=== PATIENT | female | born 1935 | race Caucasian/White ===

== ENCOUNTER 2021-09-21 15:04 | Inpatient (IN) | payer MEDICARE, MEDICAID ==
[~2021-09-21] VITALS: Ht 160 cm; Wt 48.5 kg
[2021-09-21] MEDS ORDERED: ACETAMINOPHEN 325MG TABLET PO ONE (15:15)
[2021-09-21 16:50] LABS: BASOPHILS % 0.5 % (0.0-2.0); HEMATOCRIT. 36.8 % (36.0-48.0); HEMOGLOBIN. 12.2 g/dL (12.0-16.0); MEAN CORPUSCULAR HEMOGLOBIN 29.8 pg (28.0-32.0); MEAN CORPUSCULAR VOLUME 89.5 fL (81.0-99.0); MONOCYTES % 5.6 % (2.0-8.0); NEUTROPHILS % 78.9 % (40.0-76.0); RED BLOOD CELL COUNT 4.11 mill/uL (4.2-5.4)
[2021-09-21 17:04] LABS: CHLORIDE 108 mEq/L (98-107)
[2021-09-21 17:57] LABS: MEAN PLATELET VOLUME 10.7 fl (7.4-10.4); PLATELET 130 x1000/uL (130-400)
[2021-09-21] MEDS ORDERED: SODIUM CHLORIDE 0.9% 1,000 ML IV ONE (21:00)
[2021-09-22] MEDS ORDERED: SENN-257 PO (08:59)
[2021-09-22] MEDS ORDERED: INSLIS SUBCUT (08:59)
[2021-09-22] MEDS ORDERED: ASPI-1160 MT (08:59)
[2021-09-22] MEDS ORDERED: ACET-2178 (08:59)
[2021-09-22] MEDS ORDERED: LOSA100T32 MT (08:59)
[2021-09-22 09:00] VITALS: BP 156/55
[2021-09-22 09:06] VITALS: BP 156/55
[2021-09-22 11:53] VITALS: BP 147/52
[2021-09-22] MEDS ORDERED: DEXTROSE 50% WATER 50ML SYRINGE IV PRN ×2 (12:00)
[2021-09-22] MEDS ORDERED: DOCUSATE SODIUM 100MG CAPSULE PO PRN (12:00)
[2021-09-22] MEDS ORDERED: MAGNESIUM/ALUMINUM HYDROXIDE/SIMETHICONE 30ML UDC PO PRN (12:00)
[2021-09-22] MEDS ORDERED: ONDANSETRON HCL 4MG/2ML INJ IV PRN (12:00)
[2021-09-22] MEDS ORDERED: CLONIDINE 0.1MG TABLET PO PRN (12:00)
[2021-09-22] MEDS ORDERED: HYDROCODONE/ACETAMINOPHEN 5/325MG TABLET PO PRN (12:00)
[2021-09-22] MEDS ORDERED: NALOXONE HCL 0.4MG/ML VIAL IV PRN (12:15)
[2021-09-22] MEDS: BLOOD SUGAR DIAGNOSTIC STRIP TEST SCH ×3 (12:21→19:54)
[2021-09-22] MEDS: ENOXAPARIN 30MG/0.3ML SYR SUBCUT SCH (12:25)
[2021-09-22] MEDS: INSULIN LISPRO 100 UNITS/ML SUBCUT SCH ×3 (12:26→21:14)
[2021-09-22] MEDS: ACETAMINOPHEN 325MG TABLET PO PRN (12:26)
[2021-09-22 15:30] VITALS: BP 101/44
[2021-09-22 20:00] VITALS: BP 145/55
[2021-09-23] VITALS: BP 126/78
[2021-09-23] MEDS: BLOOD SUGAR DIAGNOSTIC STRIP TEST SCH ×4 (05:39→20:05)
[2021-09-23] MEDS: INSULIN LISPRO 100 UNITS/ML SUBCUT SCH ×4 (06:26→21:07)
[2021-09-23 06:58] LABS: BASOPHILS % 0.8 % (0.0-2.0); EOSINOPHILS % 1.8 % (0.0-5.0); HEMATOCRIT. 38.7 % (36.0-48.0); HEMOGLOBIN. 13.1 g/dL (12.0-16.0); LYMPHOCYTES % 25.8 % (20.0-50.0); MEAN CORPUSCULAR HEMOGLOBIN 30.4 pg (28.0-32.0); MEAN CORPUSCULAR VOLUME 89.6 fL (81.0-99.0); MEAN PLATELET VOLUME 10.8 fl (7.4-10.4); MONOCYTES % 8.4 % (2.0-8.0); NEUTROPHILS % 63.2 % (40.0-76.0); PLATELET 166 x1000/uL (130-400); RED BLOOD CELL COUNT 4.31 mill/uL (4.2-5.4)
[2021-09-23 07:19] LABS: CHLORIDE 107 mEq/L (98-107)
[2021-09-23 07:36] LABS: HDL CHOLESTEROL 38 mg/dL (40-59); LDL CHOLESTEROL 106 mg/dL (5-100); PHOSPHORUS 2.7 mg/dL (2.5-4.9)
[2021-09-23 07:49] LABS: VITAMIN B12 SERUM 254 pg/mL (211-911)
[2021-09-23 08:00] VITALS: BP 130/63
[2021-09-23] MEDS: ASPIRIN 81MG TABLET PO SCH (09:00)
[2021-09-23] MEDS: SENNOSIDES 8.6MG TABLET PO SCH (09:00)
[2021-09-23] MEDS: LOSARTAN POTASSIUM 100 MG TABLET PO SCH (09:00)
[2021-09-23] MEDS: ENOXAPARIN 30MG/0.3ML SYR SUBCUT SCH (09:00)
[2021-09-23 12:30] VITALS: BP 134/71
[2021-09-23] MEDS: ACETAMINOPHEN 325MG TABLET PO PRN (13:15)
[2021-09-23 16:00] VITALS: BP 134/53
[2021-09-23 20:00] VITALS: BP 148/59
[2021-09-24] VITALS: BP 157/69
[2021-09-24 04:00] VITALS: BP 153/52
[2021-09-24] MEDS: BLOOD SUGAR DIAGNOSTIC STRIP TEST SCH ×2 (05:38→12:23)
[2021-09-24] MEDS: INSULIN LISPRO 100 UNITS/ML SUBCUT SCH ×2 (06:01→12:35)
[2021-09-24 07:19] LABS: BASOPHILS % 0.6 % (0.0-2.0); EOSINOPHILS % 1.2 % (0.0-5.0); HEMATOCRIT. 38.3 % (36.0-48.0); HEMOGLOBIN. 13.2 g/dL (12.0-16.0); LYMPHOCYTES % 27.7 % (20.0-50.0); MEAN CORPUSCULAR HEMOGLOBIN 30.5 pg (28.0-32.0); MEAN CORPUSCULAR VOLUME 88.2 fL (81.0-99.0); MEAN PLATELET VOLUME 11.2 fl (7.4-10.4); MONOCYTES % 9.4 % (2.0-8.0); NEUTROPHILS % 61.1 % (40.0-76.0); PLATELET 160 x1000/uL (130-400); RED BLOOD CELL COUNT 4.34 mill/uL (4.2-5.4); RED CELL DISTRIBUTION WIDTH 12.8 % (11.6-14.6)
[2021-09-24 07:39] LABS: CHLORIDE 102 mEq/L (98-107)
[2021-09-24 08:00] VITALS: BP 139/55
[2021-09-24] MEDS ORDERED: CYANOCOBALAMIN 1000MCG/ML VIAL IM SCH (09:00)
[2021-09-24] MEDS: ASPIRIN 81MG TABLET PO SCH (09:11)
[2021-09-24] MEDS: ENOXAPARIN 30MG/0.3ML SYR SUBCUT SCH (09:11)
[2021-09-24] MEDS: SENNOSIDES 8.6MG TABLET PO SCH (09:11)
[2021-09-24] MEDS: LOSARTAN POTASSIUM 100 MG TABLET PO SCH (09:11)
[2021-09-24 12:00] VITALS: BP 143/68
[2021-09-24] MEDS: ACETAMINOPHEN 325MG TABLET PO PRN (12:36)
[2021-09-24 16:00] VITALS: BP 142/65
[2021-09-24 16:39] VITALS: BP 145/65
[2021-10-02] MEDS ORDERED: CLON0.1T PO (20:10)
[2021-10-02] MEDS ORDERED: ENOX40SY27 SQ (20:11)
[2021-10-02] MEDS ORDERED: LOSA100T32 PO (20:12)
[2021-10-02] MEDS ORDERED: MYL30 PO (20:13)
== END 2021-09-24 17:00 | DRG 74 ==
LOC: ER 15:04 → MICUSO 19:09 → 8WST 09-22 08:20
PROVIDERS: ADMIT Internal Medicine; ATTEND Internal Medicine
PROC: 4A10X4Z Monitoring of Central Nervous Electrical Activity, External Approach (ICD-10-PCS; principal; 2021-09-23)
DX: G90.8 Other disorders of autonomic nervous system (principal); E11.9 Type 2 diabetes mellitus without complications; F02.80 Dementia in other diseases classified elsewhere, unspecified severity, without behavioral disturbance, psychotic disturbance, mood disturbance, and anxiety; G30.9 Alzheimer's disease, unspecified; R26.89 Other abnormalities of gait and mobility; R53.81 Other malaise; Z20.822 Contact with and (suspected) exposure to COVID-19; M85.80 Other specified disorders of bone density and structure, unspecified site; I10 Essential (primary) hypertension; I25.2 Old myocardial infarction; Z87.440 Personal history of urinary (tract) infections
CPT/HCPCS: 36415; 70551; 71045; 73521; 80048; 80053; 80061; 80076; 82607; 82962; 83036; 83735; 84100; 84439; 84443; 84484; 85025; 87426; 93005; 93306; 93880; 93970; 95816; 97162; 99285; J1650; J1815; J3420; J7030

== ENCOUNTER 2021-11-13 13:27 | Inpatient (IN) | payer MEDICARE, MEDICAID ==
[~2021-11-13] VITALS: Ht 162.6 cm; Wt 49.0 kg
[~2021-11-13 13:27] MED LIST: ACET-2178; ASPI-1160 MT; CLON0.1T PO; ENOX40SY27 SQ; INSLIS SUBCUT; LOSA100T32 MT; LOSA100T32 PO; MYL30 PO; SENN-257 PO
[2021-11-13 15:18] LABS: BASOPHILS % 0.9 % (0.0-2.0); EOSINOPHILS % 0.4 % (0.0-5.0); HEMATOCRIT. 37.3 % (36.0-48.0); HEMOGLOBIN. 13.1 g/dL (12.0-16.0); LYMPHOCYTES % 13.9 % (20.0-50.0); MEAN CORPUSCULAR VOLUME 85.2 fL (81.0-99.0); MEAN PLATELET VOLUME 9.5 fl (7.4-10.4); MONOCYTES % 5.2 % (2.0-8.0); NEUTROPHILS % 79.6 % (40.0-76.0); PLATELET 273 x1000/uL (130-400); RED BLOOD CELL COUNT 4.38 mill/uL (4.2-5.4); RED CELL DISTRIBUTION WIDTH 12.4 % (11.6-14.6)
[2021-11-13] MEDS ORDERED: SODIUM CHLORIDE 0.9% 1,000 ML IV ONE (15:30)
[2021-11-13 15:33] LABS: CHLORIDE 82 mEq/L (98-107)
[2021-11-13 15:43] LABS: CLARITY URINE CLEAR (CLEAR); COLOR URINE YELLOW (YELLOW); KETONES URINE 1+ (NEGATIVE); LEUKOCYTE ESTERASE URINE NEGATIVE (NEGATIVE); NITRITE URINE NEGATIVE (NEGATIVE); OCCULT BLOOD URINE NEGATIVE (NEGATIVE); PROTEIN URINE 2+ (NEGATIVE); SPECIFIC GRAVITY URINE 1.013 (1.005-1.030)
[2021-11-13] MEDS ORDERED: CEFTRIAXONE 1 G PREMIX 50 ML IV ONE (16:30)
[2021-11-13] MEDS ORDERED: OLANZAPINE 5MG TABLET ODT PO ONE (16:30)
[2021-11-13] MEDS ORDERED: MAGNESIUM/ALUMINUM HYDROXIDE/SIMETHICONE 30ML UDC PO PRN (18:45)
[2021-11-13] MEDS ORDERED: ACETAMINOPHEN 325MG TABLET PO PRN (18:45)
[2021-11-13] MEDS ORDERED: GUAIFENESIN 200MG/10ML SUGAR FREE UDC PO PRN (18:45)
[2021-11-13] MEDS ORDERED: ONDANSETRON HCL 4MG/2ML INJ IV PRN (18:45)
[2021-11-13] MEDS ORDERED: DOCUSATE SODIUM 100MG CAPSULE PO PRN (18:45)
[2021-11-13] MEDS ORDERED: TRAMADOL 50MG TABLET PO PRN (18:51)
[2021-11-13] MEDS ORDERED: HALOPERIDOL LACTATE 5MG/ML VIAL IM ONE (19:00)
[2021-11-13 19:14] LABS: CHLORIDE 87 mEq/L (98-107)
[2021-11-13] MEDS: ENOXAPARIN 30MG/0.3ML SYR SUBCUT SCH (19:49)
[2021-11-13 20:45] VITALS: BP 155/68
[2021-11-14] VITALS: BP 135/65
[2021-11-14 04:00] VITALS: BP 126/63
[2021-11-14] MEDS ORDERED: DEXTROSE 50% WATER 50ML SYRINGE IV PRN (06:15)
[2021-11-14] MEDS: BLOOD SUGAR DIAGNOSTIC STRIP TEST SCH ×4 (06:29→21:49)
[2021-11-14 08:00] VITALS: BP 138/82
[2021-11-14 08:03] LABS: BASOPHILS % 0.8 % (0.0-2.0); EOSINOPHILS % 0.3 % (0.0-5.0); HEMATOCRIT. 38.5 % (36.0-48.0); HEMOGLOBIN. 13.6 g/dL (12.0-16.0); LYMPHOCYTES % 23.5 % (20.0-50.0); MEAN CORPUSCULAR VOLUME 85.2 fL (81.0-99.0); MEAN PLATELET VOLUME 9.3 fl (7.4-10.4); MONOCYTES % 9.7 % (2.0-8.0); NEUTROPHILS % 65.7 % (40.0-76.0); PLATELET 331 x1000/uL (130-400); RED BLOOD CELL COUNT 4.52 mill/uL (4.2-5.4); RED CELL DISTRIBUTION WIDTH 12.7 % (11.6-14.6)
[2021-11-14 08:20] LABS: SODIUM URINE RANDOM 56 mEq/L
[2021-11-14 09:05] LABS: CHLORIDE 92 mEq/L (98-107)
[2021-11-14] MEDS: AMLODIPINE 10MG TABLET PO SCH (09:41)
[2021-11-14] MEDS: SODIUM CHLORIDE 0.9% 1,000 ML IV SCH ×2 (09:42→21:40)
[2021-11-14] MEDS: INSULIN LISPRO 100 UNITS/ML SUBCUT SCH ×4 (09:43→21:00)
[2021-11-14 12:00] VITALS: BP 134/89
[2021-11-14 15:34] VITALS: BP 130/78
[2021-11-14] MEDS ORDERED: CEFTRIAXONE 1,000 MG in DEXTROSE 5% WATER 50 ML IV SCH (16:00)
[2021-11-14] MEDS ORDERED: POTASSIUM CHLORIDE 20MEQ TABLET SR PO NR (16:30)
[2021-11-14] MEDS ORDERED: NALOXONE HCL 0.4MG/ML VIAL IV PRN (16:45)
[2021-11-14] MEDS: CEFTRIAXONE 1,000 MG in DEXTROSE 5% WATER 50 ML IV SCH (17:40)
[2021-11-14 20:00] VITALS: BP_SYST 106; BP_SYST 153; BP_DIAS 52; BP_DIAS 76
[2021-11-14] MEDS: ENOXAPARIN 30MG/0.3ML SYR SUBCUT SCH (21:50)
[2021-11-15] VITALS: BP 102/46
[2021-11-15 04:00] VITALS: BP 116/48
[2021-11-15] MEDS: BLOOD SUGAR DIAGNOSTIC STRIP TEST SCH ×4 (07:28→21:00)
[2021-11-15 08:00] VITALS: BP 120/50
[2021-11-15 08:17] LABS: HEMATOCRIT 33.3 % (36.0-48.0); HEMOGLOBIN 11.9 g/dL (12.0-16.0); MEAN CORPUSCULAR HEMOGLOBIN 30.6 pg (28.0-32.0); PLATELET 265 x1000/uL (130-400); RED BLOOD CELL COUNT 3.87 mill/uL (4.2-5.4); RED CELL DISTRIBUTION WIDTH 12.7 % (11.6-14.6)
[2021-11-15 08:59] LABS: CHLORIDE 97 mEq/L (98-107)
[2021-11-15] MEDS: AMLODIPINE 10MG TABLET PO SCH (09:07)
[2021-11-15] MEDS: INSULIN LISPRO 100 UNITS/ML SUBCUT SCH ×4 (09:08→22:09)
[2021-11-15] MEDS: SODIUM CHLORIDE 0.9% 1,000 ML IV SCH (11:00)
[2021-11-15 12:00] VITALS: BP 126/52
[2021-11-15 16:00] VITALS: BP 133/62
[2021-11-15] MEDS: CEFTRIAXONE 1,000 MG in DEXTROSE 5% WATER 50 ML IV SCH (17:44)
[2021-11-15 20:00] VITALS: BP 121/52
[2021-11-15] MEDS: ENOXAPARIN 30MG/0.3ML SYR SUBCUT SCH (22:08)
[2021-11-16] VITALS: BP 113/50
[2021-11-16] MEDS: SODIUM CHLORIDE 0.9% 1,000 ML IV SCH ×3 (00:20→17:04)
[2021-11-16 04:00] VITALS: BP 129/48
[2021-11-16 06:14] LABS: CHLORIDE 100 mEq/L (98-107)
[2021-11-16 06:32] LABS: BASOPHILS % 0.9 % (0.0-2.0); EOSINOPHILS % 0.2 % (0.0-5.0); HEMATOCRIT. 34.3 % (36.0-48.0); HEMOGLOBIN. 11.9 g/dL (12.0-16.0); LYMPHOCYTES % 11.1 % (20.0-50.0); MEAN CORPUSCULAR HEMOGLOBIN 30.4 pg (28.0-32.0); MEAN CORPUSCULAR VOLUME 87.5 fL (81.0-99.0); MEAN PLATELET VOLUME 8.9 fl (7.4-10.4); MONOCYTES % 6.4 % (2.0-8.0); NEUTROPHILS % 81.4 % (40.0-76.0); PLATELET 277 x1000/uL (130-400); RED BLOOD CELL COUNT 3.92 mill/uL (4.2-5.4)
[2021-11-16] MEDS: BLOOD SUGAR DIAGNOSTIC STRIP TEST SCH ×4 (07:13→21:51)
[2021-11-16] MEDS: INSULIN LISPRO 100 UNITS/ML SUBCUT SCH ×4 (07:29→21:00)
[2021-11-16 08:06] VITALS: BP 121/49
[2021-11-16] MEDS: AMLODIPINE 10MG TABLET PO SCH ×2 (09:00→09:01)
[2021-11-16 11:54] VITALS: BP 117/62
[2021-11-16 15:51] VITALS: BP 119/53
[2021-11-16] MEDS: CEFTRIAXONE 1,000 MG in DEXTROSE 5% WATER 50 ML IV SCH (17:04)
[2021-11-16 20:00] VITALS: BP 121/49
[2021-11-16] MEDS: ENOXAPARIN 30MG/0.3ML SYR SUBCUT SCH (21:56)
[2021-11-17] VITALS: BP 136/73
[2021-11-17 04:00] VITALS: BP 140/50
[2021-11-17] MEDS: INSULIN LISPRO 100 UNITS/ML SUBCUT SCH ×2 (07:18→12:50)
[2021-11-17] MEDS: BLOOD SUGAR DIAGNOSTIC STRIP TEST SCH ×2 (07:18→12:20)
[2021-11-17 07:34] VITALS: BP 128/55
[2021-11-17] MEDS: AMLODIPINE 10MG TABLET PO SCH (08:19)
[2021-11-17 12:05] VITALS: BP 128/55
== END 2021-11-17 13:25 | DRG 640 ==
LOC: ER 13:27 → EDBEDREQ 16:40 → EDBEDREQTM 16:40 → ENRESERV 18:49 → 6WST 21:45
PROVIDERS: ADMIT Hospitalist; ATTEND Hospitalist
DX: E87.1 Hypo-osmolality and hyponatremia (principal); G93.41 Metabolic encephalopathy; N39.0 Urinary tract infection, site not specified; E11.65 Type 2 diabetes mellitus with hyperglycemia; I10 Essential (primary) hypertension; G30.9 Alzheimer's disease, unspecified; F02.80 Dementia in other diseases classified elsewhere, unspecified severity, without behavioral disturbance, psychotic disturbance, mood disturbance, and anxiety; Z79.4 Long term (current) use of insulin; Z79.82 Long term (current) use of aspirin; Z78.1 Physical restraint status
CPT/HCPCS: 36415; 71045; 73610; 80048; 80053; 81003; 82962; 83036; 83935; 84300; 84484; 85025; 85027; 93005; 93970; 99291; J0696; J1630; J1650; J1815; J7030; J7060